=== PATIENT | female | born 1995 | race Caucasian/White ===

== ENCOUNTER 2020-06-05 06:17 | Day surgery (SDC) | payer OTHER ==
[2020-06-03 12:26] VITALS: BMI 49.5
[2020-06-05] MEDS ORDERED: AFRIN NASAL MIST 15 ML BOT ONE ×2 (06:28)
[2020-06-05] MEDS ORDERED: Bacitracin Zinc Ointment 30 gm TUBE ONE (06:28)
[2020-06-05] MEDS ORDERED: Lidocaine 2% w/Epinephrine 1:200K 20 ML VIAL ONE (06:28)
[2020-06-05] MEDS ORDERED: Fentanyl 100 MCG/2 ML VIAL ONE ×2 (07:00→09:02)
[2020-06-05] MEDS ORDERED: Morphine 2 MG/ML VIAL ONE (07:00)
[2020-06-05 07:18] LABS: BHCG - Serum Negative (NEGATIVE); Pregs Control Background? CLEAR/WHITE (CLR/WHITE); Pregs Control Bar Appear? YES (CONTROL BAR)
[2020-06-05] MEDS ORDERED: Midazolam HCl 2 mg/2 ml Vial ONE (07:37)
[2020-06-05] MEDS ORDERED: Lidocaine 1% (PF) 30 ML VIAL ONE (08:06)
[2020-06-05] MEDS ORDERED: EPINEPHrine 1 MG/ML AMP ONE (08:06)
[2020-06-05] MEDS ORDERED: Lidocaine 1% PF 5 ML VIAL ONE (09:56)
[2020-06-05] MEDS ORDERED: Dexamethasone 20 MG/5 ML VIAL ONE (09:56)
[2020-06-05] MEDS ORDERED: PROPOFOL 200 MG/20 ML VIAL ONE (09:56)
[2020-06-05] MEDS ORDERED: Ondansetron PF 4 MG/2 ML Vial ONE (09:56)
[2020-06-05] MEDS ORDERED: PHENYLEPHRINE-NS 100 MCG/ML 10 ML SYRINGE ONE (09:56)
[2020-06-05] MEDS ORDERED: Hydrocodone-Acetamin 15 ML UDCUP ONE (10:21)
--- NOTE | 2020-06-05 12:17 | OP ---
DATE OF PROCEDURE: 06/05/2020 PREOPERATIVE DIAGNOSES: 1. Chronic rhinosinusitis. 2. Nasal septal deviation. 3. Bilateral inferior turbinate hypertrophy. 4. Left middle turbinate priti bullosa. 5. Nasal obstruction. POSTOPERATIVE DIAGNOSES: 1. Chronic rhinosinusitis. 2. Nasal septal deviation. 3. Bilateral inferior turbinate hypertrophy. 4. Left middle turbinate priti bullosa. 5. Nasal obstruction. PROCEDURES PERFORMED: 1. Bilateral endoscopic sinus surgery, total ethmoidectomies. 2. Bilateral endoscopic sinus surgery, maxillary antrostomies. 3. Bilateral endoscopic sinus surgery, frontal sinusotomies. 4. Nasoseptoplasty. 5. Bilateral inferior turbinate submucosal resection. ESTIMATED BLOOD LOSS: 20 mL. COMPLICATIONS: None. ANESTHESIA: GETA. PROCEDURE IN DETAIL: Patient was taken to the operating room and placed supine on the table. General endotracheal anesthesia was obtained by the anesthesia staff. Then 1% lidocaine with 1:100,000 epinephrine was injected into the nasal septum as well as the inferior turbinates. The patient was prepped and draped in standard surgical fashion. The Afrin pledgets were then removed. A Javier incision was made on the left nasal septum. Submucoperichondrial dissection was performed bilaterally of the deviated portions of the septum, which included the maxillary crest and the crest deviation, as well as the mid portion of the septum. Cartilage and bony deviation was removed, leaving a generous caudal and dorsal strut. Any straight pieces of cartilage were then placed within the cartilage press, pressed, straightened, and then placed between the mucoperichondrial flaps, which were then closed using a 4-0 gut stitch. The inferior turbinates were then punctured with the submucosal Coblation machine, and 3 separate coblations were delivered to the anterior inferior portion of the inferior turbinates. Following this, the nasal cavity was irrigated. All debris was removed. An orogastric tube was placed. Gastric contents and Henley splints were then placed in the nasal cavity and sutured with a 3-0 silk stitch. Following this, the 0-degree endoscope was advanced in the middle meatus bilaterally. The left middle turbinate had a large priti bullosa deformity, which was vertically incised with a sickle knife and the lateral wall of the priti bullosa and deformity of the middle turbinate was removed using the straight Blakesley forceps and the microdebrider. Following this, the uncinate process was visualized bilaterally and a ball-ended probe was used to anteriorly fracture the uncinate bilaterally and the 40-degree microdebrider blade and the up-biting Blakesley forceps were used to remove the uncinate. Following this, the natural maxillary sinus ostia was palpated using a ball-ended probe bilaterally and a 40-degree microdebrider blade and straight Blakesley forceps used to widen the maxillary sinus ostia bilaterally. Following this, ethmoidal bulla was identified and was punctured on its medial and inferior aspect using the 0-degree microdebrider. The ethmoidal bulla was then removed along with the anterior ethmoidal cells. Following this, the grand lamella was identified and was punctured into the posterior ethmoidal cells using the 0-degree microdebrider. Working from posterior to anterior, the ethmoidal cells were opened in a mucosal sparing technique. Following this, the 45-degree endoscope along with a 40-degree microdebrider blade was used to further open the frontal sinus ostia and widen the frontal sinus bilaterally using a 40-degree microdebrider blade and up-biting Blakesley forceps. Following this, the nasal cavity was irrigated. NasoPore packing was placed within the middle meatus. Henley splints were placed and secured. The patient tolerated the procedure well. Job ID: [id number]
== END 2020-06-05 10:50 | disposition home or self-care (01) ==
LOC: SDC 06:17
PROVIDERS: ATTEND Otolaryngology Plastic Surgery within the Head & Neck
PROC: 09TV8ZZ Resection of Left Ethmoid Sinus, Via Natural or Artificial Opening Endoscopic (ICD-10-PCS; principal; 2020-06-05)
PROC: 09TU8ZZ Resection of Right Ethmoid Sinus, Via Natural or Artificial Opening Endoscopic (ICD-10-PCS; principal; 2020-06-05)
PROC: 099Q8ZZ Drainage of Right Maxillary Sinus, Via Natural or Artificial Opening Endoscopic (ICD-10-PCS; principal; 2020-06-05)
PROC: 09SM0ZZ Reposition Nasal Septum, Open Approach (ICD-10-PCS; principal; 2020-06-05)
PROC: 099T8ZZ Drainage of Left Frontal Sinus, Via Natural or Artificial Opening Endoscopic (ICD-10-PCS; principal; 2020-06-05)
PROC: 09TL0ZZ Resection of Nasal Turbinate, Open Approach (ICD-10-PCS; principal; 2020-06-05)
PROC: 099R8ZZ Drainage of Left Maxillary Sinus, Via Natural or Artificial Opening Endoscopic (ICD-10-PCS; principal; 2020-06-05)
PROC: 099S8ZZ Drainage of Right Frontal Sinus, Via Natural or Artificial Opening Endoscopic (ICD-10-PCS; principal; 2020-06-05)
DX: J32.9 Chronic sinusitis, unspecified (principal); J34.2 Deviated nasal septum; J34.3 Hypertrophy of nasal turbinates; J34.89 Other specified disorders of nose and nasal sinuses; J30.9 Allergic rhinitis, unspecified; J40 Bronchitis, not specified as acute or chronic; Z79.899 Other long term (current) drug therapy; Z91.018 Allergy to other foods
CPT/HCPCS: 36415; 84703; 85014; J0171; J1100; J2001; J2250; J2270; J2405; J2704; J3010